=== PATIENT | female | born 1935 | race Caucasian/White ===

== ENCOUNTER 2017-01-26 09:24 | Day surgery (SDC) | payer MEDICARE, OTHER ==
[2017-01-26] VITALS (11 sets, daily range): BP systolic 127–191; BP diastolic 52–82; PULSE 53–68; RESP 12–20; O2SAT 97–100
[~2017-01-26] VITALS: Ht 160 cm; Wt 70.1 kg
[~2017-01-26 09:24] MED LIST: ACET325C PO; AGM875T PO; BUPR-97 PO; CARV12.52 PO; CARV25TA2 PO; CHOL100045 PO; DICL100G8 TOPICAL; FEBU80TA PO; KETACONAZOLE SHAMPOO TP; KETACONAZOLE TP; LEVO25TA5 PO; LISD70CA2 PO; LISI-567 PO; Lactated Ringer's 1,000 ML IV ONE; MULT-1073 PO; WARF4TAB6 PO
[2017-01-26] MEDS ORDERED: fentaNYL-PF 50 mCg/mL 2 mL Inj ONE (09:25)
[2017-01-26] MEDS ORDERED: EPHEDrine/NS 5 mg/mL 5 mL Syringe ONE (09:25)
[2017-01-26] MEDS ORDERED: Propofol 10,000 mCg/mL 20 mL Inj ONE (09:25)
[2017-01-26] MEDS ORDERED: Ondansetron 2 mg/mL 2 mL Inj ONE (09:25)
[2017-01-26] MEDS ORDERED: Glycopyrrolate 0.2 MG/ML 1mL Inj ONE (09:25)
[2017-01-26] MEDS ORDERED: Phenylephrine/NS 100 mCg/mL 10 mL Syringe IVPUSH ONE (09:25)
[2017-01-26] MEDS ORDERED: Neostigmine 1 mg/mL 10 mL Inj ONE (09:25)
[2017-01-26] MEDS ORDERED: Rocuronium 10 mg/mL 5 mL Inj ONE (09:25)
[2017-01-26] MEDS ORDERED: CeFAZolin Inj 2 gm / 50mL D5W IV ONE (10:43)
[2017-01-26] MEDS ORDERED: Lactated Ringer's 500 ML IV PRN (11:28)
[2017-01-26] MEDS ORDERED: Lactated Ringer's 1,000 ML IV SCH (11:28)
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
[2017-01-26] MEDS ORDERED: Phenylephrine 10,000 mCg/mL Inj IVPUSH PRN (11:30)
[2017-01-26] MEDS ORDERED: Ondansetron 2 mg/mL 2 mL Inj IVPUSH PRN (11:30)
[2017-01-26] MEDS ORDERED: Atropine 0.4 mg/mL Inj IVPUSH PRN (11:30)
[2017-01-26] MEDS ORDERED: EPHEDrine Sulfate 50 mg/mL Inj IVPUSH PRN (11:30)
[2017-01-26] MEDS ORDERED: fentaNYL-PF 50 mCg/mL 2 mL Inj IVPUSH PRN (11:30)
[2017-01-26] MEDS ORDERED: Labetalol 5 mg/mL 4 mL Inj IV PRN (11:30)
[2017-01-26] MEDS ORDERED: MetoCLOpramide 5 mg/mL 2 mL Inj IVPUSH PRN (11:30)
[2017-01-26] MEDS ORDERED: HYDROcodone-APAP 5-325 mg Tablet PO PRN (12:35)
--- NOTE | 2017-01-26 12:51 | PCM.ANEP1 ---
Post Anesthesia PACU Phase 1 Assessment Vital Signs Vital Signs Date Time Temp Pulse Resp B/P Pulse Ox O2 Delivery O2 Flow Rate FiO2 01/26/17 12:41 36.5 58 16 164/60 99 Room Air 01/26/17 12:28 56 18 142/52 97 Room Air 01/26/17 12:25 56 18 127/56 98 Room Air 01/26/17 12:05 36.4 58 17 144/53 98 Room Air 01/26/17 12:00 58 16 158/61 97 Room Air 01/26/17 11:55 65 16 169/61 100 Simple Mask 8 01/26/17 11:51 36.5 68 12 182/73 100 Simple Mask 8 01/26/17 10:14 36.5 68 18 191/82 100 Room Air Anesthetic Administered: GA Level of Alertness: Awake, talking BETANCOURT's with Equal Strength: Yes Pain: No Nausea or Vomiting: No CV Function & Hydration Stable: Yes Airway Device: Endotrachial Tube Oxygen Delivery: Simple Mask Lungs: Clear to Auscultation, Normal Air Movement PACU Phase 2 Assessment Complications: No Follow up Care: N/A Patient Instructions Provided: N/A Jules Churchill MD Jan 26, 2017 12:51
--- NOTE | 2017-01-26 13:33 | DRSVH ---
PROCEDURE: X-RAY RETROGRADE UROGRAPHY INDICATIONS: RIGHT STENT PLACEMNET TECHNIQUE: 1 intra-operative images acquired by the Urology service. COMPARISON: Outside Film, CT, CT ABD PELVIS W CON, 09/30/2016, 15:46. FINDINGS: Exam limited to one submitted image. Within these limits, the right renal collecting syst em is opacified which is grossly normal. No intraluminal filling defects seen. Ureteral stent in pl [address]. IMPRESSION: Grossly normal appearance of the opacified right renal collecting system and ureteral shannon nt was placed. Dictated by: Greyson RAINEY Interpreted: Katherine Calixto MD on 01/26/2017 at 13:31 Transcribed by: TARA on 01/26/2017 at 13:32 Approved by: Katherine Calixto M.D. on 01/26/2017 at 15:54
--- NOTE | 2017-01-26 23:45 | OP ---
[address] [address] OPERATIVE REPORT PATIENT: RAZA FIGUEROA : 1935 MR#: [id number] ADMIT: 01/26/2017 JOB ID: [id number] DATE OF SURGERY: 01/26/2017 PREOPERATIVE DIAGNOSIS(ES): Right kidney stone. POSTOPERATIVE DIAGNOSIS(ES): Right kidney stone. PROCEDURE PERFORMED: 1. Cystoscopy with right retrograde pyelogram. 2. Right ureteroscopy. 3. Right ureteral stent placement. SURGEON: Yumiko Hardy MD DATABASE ADMIN: None. FINDINGS: Narrow ureteropelvic junction. ANESTHESIA: General. ESTIMATED BLOOD LOSS: Less than 10 mL. DRAINS: A 6 x 22 right double-J ureteral stent. COMPLICATIONS: None. SPECIMENS: None. CONDITION: Stable. INDICATION: The patient is an 81-year-old woman with a history of a dominant right kidney. She has history of right ureteroscopy in the past. She was found to have a recurrent right kidney stone. She wished to undergo ureteroscopy. DESCRIPTION OF PROCEDURE: After informed consent was obtained, the patient was taken to the operating room. A time-out was performed, identifying correct patient, surgical site, procedure. General anesthesia was induced. She was given intravenous antibiotics just prior to the start of the procedure. She was placed in the lithotomy position. All pressure points were identified and appropriately padded. Her genitals were then prepped and draped in the usual sterile fashion. A 22-Georgian rigid cystoscope was applied to the patient's bladder. The bladder was drained. The right ureteral orifice was seen in orthotopic position. It was cannulated with 5-Georgian open-ended Pollack catheter. Retrograde pyelogram was performed. It appeared normal. Two Sensor tip wires were then advanced into the renal pelvis seen under fluoroscopy. A 12/14 access sheath, 28 cm long was then guided over one of the wires into the proximal right ureter. Flexible ureteroscopy then commenced. Upon coming up to the right ureteropelvic junction, there was a narrowing there. Several gentle attempts were made to maneuver past this narrowing but it was not possible to do so. It was decided to remove the ureteroscope. It was brought down to the level of the access sheath and both were brought down the same under direct vision. The ureter appeared normal. The remaining Sensor tip wire was then backloaded into the cystoscope and a 6 x 22 double-J ureteral stent was loaded over it and advanced into the renal pelvis as seen under fluoroscopy. The wire was then removed, leaving a nice coil in the patient's bladder as seen under direct vision. The bladder was drained. The patient was reversed from general anesthesia and taken to the PACU in good condition. NEL
== END 2017-01-26 23:59 | disposition home or self-care (01) ==
LOC: SAS 09:24
PROVIDERS: ATTEND Urology
DX: N20.0 Calculus of kidney (principal); I10 Essential (primary) hypertension; M81.0 Age-related osteoporosis without current pathological fracture; M10.9 Gout, unspecified; I26.99 Other pulmonary embolism without acute cor pulmonale; F41.8 Other specified anxiety disorders; E03.9 Hypothyroidism, unspecified; I82.509 Chronic embolism and thrombosis of unspecified deep veins of unspecified lower extremity; Z79.01 Long term (current) use of anticoagulants
CPT/HCPCS: 36415; 52332; 74420; 85610; C2617; J0690; J2370; J2405; J2710; J3010; J7120; Q9967

== ENCOUNTER 2017-02-11 13:02 | Day surgery (SDC) | payer MEDICARE, OTHER ==
[~2017-02-11] VITALS: Ht 160 cm; Wt 70.0 kg
[2017-02-11] VITALS (8 sets, daily range): BP systolic 127–159; BP diastolic 54–98; PULSE 60–75; RESP 15–18; O2SAT 94–99
[~2017-02-11 13:02] MED LIST changes: -CARV12.52 PO; +CeFAZolin 2 Gm/50 mL D5W IV Premix IV ONE; +HYDR-4003 PO; -KETACONAZOLE TP; -Lactated Ringer's 1,000 ML IV ONE; +[UNRECOGNIZED DRUG - CODE] PO
[2017-02-11] MEDS ORDERED: Ondansetron 2 mg/mL 2 mL Inj ONE (13:03)
[2017-02-11] MEDS ORDERED: Propofol 10,000 mCg/mL 20 mL Inj ONE (13:03)
[2017-02-11] MEDS ORDERED: Lidocaine PF 1% 30 mL Inj ONE (13:03)
[2017-02-11] MEDS ORDERED: Glycopyrrolate 0.2 MG/ML 1mL Inj ONE (13:03)
[2017-02-11] MEDS ORDERED: Neostigmine 1 mg/mL 10 mL Inj ONE (13:03)
[2017-02-11] MEDS ORDERED: fentaNYL-PF 50 mCg/mL 2 mL Inj ONE (13:03)
[2017-02-11] MEDS: Lactated Ringer's 1,000 ML IV SCH ×2 (15:14→16:12)
[2017-02-11 15:30] LABS: INR 1.05 ratio
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
[2017-02-11] MEDS ORDERED: Lactated Ringer's 1,000 ML IV SCH (15:59)
[2017-02-11] MEDS ORDERED: Lactated Ringer's 500 ML IV PRN (15:59)
[2017-02-11] MEDS ORDERED: Phenylephrine 10,000 mCg/mL Inj IVPUSH PRN (16:00)
[2017-02-11] MEDS ORDERED: HYDROmorphone 1 mg/mL Inj IVPUSH PRN (16:00)
[2017-02-11] MEDS ORDERED: hydrALAZINE 20 mg/mL Inj IVPUSH PRN (16:00)
[2017-02-11] MEDS ORDERED: Atropine 0.4 mg/mL Inj IVPUSH PRN (16:00)
[2017-02-11] MEDS ORDERED: fentaNYL-PF 50 mCg/mL 2 mL Inj IVPUSH PRN (16:00)
[2017-02-11] MEDS ORDERED: Labetalol 5 mg/mL 4 mL Inj IV PRN (16:00)
[2017-02-11] MEDS ORDERED: Dexamethasone 4 mg/mL Inj IVPUSH PRN (16:00)
[2017-02-11] MEDS ORDERED: Ondansetron 2 mg/mL 2 mL Inj IVPUSH PRN (16:00)
[2017-02-11] MEDS ORDERED: EPHEDrine Sulfate 50 mg/mL Inj IVPUSH PRN (16:00)
[2017-02-11] MEDS ORDERED: MetoCLOpramide 5 mg/mL 2 mL Inj IVPUSH PRN (16:00)
[2017-02-11] MEDS ORDERED: CeFAZolin 2 Gm/50 mL D5W Duplex Bag IV ONE (16:10)
[2017-02-11] MEDS ORDERED: HYDROcodone-APAP 5-325 mg Tablet PO PRN (17:05)
--- NOTE | 2017-02-11 17:09 | PCM.ANEP1 ---
Post Anesthesia PACU Phase 1 Assessment Date of Service: Feb 11, 2017 Vital Signs PACU 127/60, 82, 20, 96% RA, T 36.1 Vital Signs Date Time Temp Pulse Resp B/P Pulse Ox O2 Delivery O2 Flow Rate FiO2 02/11/17 14:13 36.2 75 18 159/62 97 Room Air Anesthetic Administered: GA Level of Alertness: Awake, talking BETANCOURT's with Equal Strength: Yes Pain: No Nausea or Vomiting: No CV Function & Hydration Stable: Yes Airway Device: Oxygen Delivery: Room Air Lungs: Normal Air Movement, Other (Chronic cough) PACU Phase 2 Assessment Complications: No Follow up Care: N/A Patient Instructions Provided: N/A Alessio Diaz MD Feb 11, 2017 17:08
--- NOTE | 2017-02-11 18:09 | OP ---
[address] [address] OPERATIVE REPORT PATIENT: RAZA FIGUEROA : 1935 MR#: [id number] ADMIT: 02/11/2017 JOB ID: [id number] DATE OF SURGERY: 02/11/2017 SURGEON: Yumiko Hardy MD. [employer] OWNER: None. PREOPERATIVE DIAGNOSIS(ES): Right kidney stone. POSTOPERATIVE DIAGNOSIS(ES): Right kidney stone. PROCEDURE PERFORMED: 1. Cystoscopy and right ureteral stent removal. 2. Right retrograde pyelogram. 3. Right ureteroscopy with laser lithotripsy and stone basketing. 4. Right stent placement. FINDINGS: Lower pole kidney stones which were quite small, the conglomerate being about 4-5 mm. ANESTHESIA: General. ESTIMATED BLOOD LOSS: Less than 2 mL. DRAINS: 6 x 22 right double-J ureteral stent. SPECIMENS: Right kidney stone. COMPLICATIONS: None. CONDITION: Stable. INDICATION FOR PROCEDURE: The patient is an 81-year-old woman who underwent a right stent placement and ureteroscopy on January 26, 2017. Ureteroscopy was incomplete as the kidney could not be accessed. She now presents for the aforementioned procedure. DESCRIPTION OF PROCEDURE: After informed consent was obtained, the patient was taken to the operating room. A time-out was performed identifying correct patient, surgical site, and procedure. General anesthesia was smoothly induced. She was given intravenous antibiotics just prior to the start of the procedure. She was placed in the lithotomy position and all pressure points were identified and appropriately padded. Her genitals were then prepped and draped in usual sterile fashion. A 22-Belarusian rigid cystoscope was applied to the patient's urethra and advanced into the bladder. The bladder was drained. The right ureteral orifice was seen with the stent emanating from it. The stent was then grasped with graspers and manipulated down to the urethral meatus. The stent was cannulated with a Sensor tip wire. It was advanced to the renal pelvis as seen under fluoroscopy. The stent was removed over the wire and ensured as removed in its entirety. Another sensor tip wire was then placed into the renal pelvis as seen under fluoroscopy. A 12/14 access sheath, 28 cm long was navigated over one of the wires to the proximal ureter. Flexible ureteroscopy then commenced. Retrograde pyelogram was performed. Every calyx was inspected. The 2nd to most inferior calyx was seen with stones. No other calices were found with stones and this was consistent with the CT findings from September. A 273 micron laser fiber wire was used to fragment the larger stones, and the stones were fairly soft. A zero tip nitinol basket was used to attempt to basket these fragments though the one larger fragment 2 mm was the only one that could be removed, the others were simply too small. This was passed off the table to Pathology for stone analysis. The ureteroscope was then brought down to the level of the access sheath and both were brought down in tandem. The ureter was normal. Remaining Sensor tip wire was then backloaded into the cystoscope and a 6 x 22 double-J ureteral stent was loaded over it and guided into the right renal pelvis as seen under fluoroscopy. Wire was removed leaving a nice coil in the patient's bladder seen under direct vision. The bladder was drained. The patient was then reversed from general anesthesia and taken to PACU in good and stable condition. NEL
--- NOTE | 2017-02-12 17:08 | DRSVH ---
PROCEDURE: X-RAY RETROGRADE UROGRAPHY INDICATIONS: RIGHT CYSTO AND STENT PLACEMENT TECHNIQUE: 3 intra-operative images acquired by the Urology service. COMPARISON: [facility], CR, XR RETROGRADE UROGRAPHY, 01/26/2017, 11:23. FINDINGS: Exam limited to 3 submitted image. Within these limits, the right renal collecting system is opacified which is grossly normal. No definite intraluminal filling defects seen. Ureteral sten t in place. IMPRESSION: Grossly normal appearance of the partially opacified right renal collecting system and ur eteral stent was placed. Dictated by: Greyson RAINEY Interpreted: Cynthia Kumar MD on 02/12/2017 at 9:09 Approved by: Cynthia Kumar M.D. on 02/12/2017 at 17:05
== END 2017-02-11 23:59 | disposition home or self-care (01) ==
LOC: SAS 13:02
PROVIDERS: ATTEND Urology
DX: N20.0 Calculus of kidney (principal); I10 Essential (primary) hypertension; F41.8 Other specified anxiety disorders; E03.9 Hypothyroidism, unspecified; M81.0 Age-related osteoporosis without current pathological fracture; M10.9 Gout, unspecified; I26.99 Other pulmonary embolism without acute cor pulmonale; Z79.01 Long term (current) use of anticoagulants
CPT/HCPCS: 36415; 52356; 74420; 82360; 85610; C2617; J0690; J2405; J2710; J3010; J7120; Q9967

== ENCOUNTER 2017-02-20 10:09 | Emergency (ER) | payer MEDICARE, OTHER ==
[~2017-02-20] VITALS: Ht 160 cm; Wt 69.5 kg
[~2017-02-20 10:09] MED LIST changes: -CeFAZolin 2 Gm/50 mL D5W IV Premix IV ONE; -[UNRECOGNIZED DRUG - CODE] PO
[2017-02-20 10:10] VITALS: BP 138/79; PULSE 74; RESP 16; O2SAT 97
--- NOTE | 2017-02-20 10:51 | ED.REPORT ---
HPI-Extremity Problem Lower Date of Service Feb 20, 2017 ED Provider: Lester Desai MD Pt is an 81 year old female with a history of DVT (1x bilaterally), HTN, and hyperlipidemia who presents to the ED complaining of worsening left leg pain onset 3 days ago. She c/o difficulty walking secondary to the pain. She denies chest pain and SOB. Pt was recently diagnosed with kidney stones and had a stent placed, which was removed today. She reports that she has been off Warfarin for the past 10 days. Nursing Notes Stated Complaint: LEG PAIN Chief Complaint: Extremity Trauma Nursing Notes Reviewed: Yes ([facility] not reconciled (off warfarin x10 days for surgery) Allergies: Coded Allergies: Sulfa (Sulfonamide Antibiotics) (Verified Allergy, Severe, RASH, 02/11/17) Scheduled ([Ketaconazole Shampoo]) 1 APPLIC TP 2X/WEEK 2% Amoxicillin/Clav K 875-125 mg (Amoxicillin/Clav K 875-125 mg) 875 Mg Tab 1 TABLET PO BID Bupropion ER (Wellbutrin XL) 150 Mg Tab.er.24h 450 MG PO DAILY Carvedilol (Carvedilol) 25 Mg Tablet 25 MG PO BID Cholecalciferol (Vitamin D3) (Vitamin D) 1,000 Unit Capsule 2,000 UNIT PO DAILY Diclofenac Gel (Voltaren Gel) 100 Gm Tube 1 APPLIC TOPICAL QID 1% Enoxaparin (Lovenox) 80 Mg/0.8 Ml Syringe 70 MG SUBQ Q12 Febuxostat (Uloric) 80 Mg Tablet 80 MG PO HS Levothyroxine (Levothyroxine) 25 Mcg Tablet 25 MCG PO DAILY Lisdexamfetamine Dimesylate (Vyvanse) 70 Mg Capsule 70 MG PO DAILY Lisinopril (Lisinopril) 20 Mg Tablet 20 MG PO BID Multivits-Min/FA/Lycopene/Lut (Centrum Silver Tablet) 1 Each Tablet 1 EACH PO DAILY Warfarin Sodium (Warfarin Sodium) 4 Mg Tablet 4 MG PO DAILY TAKES 2MG M F ; 4MG REST OF WEEK DAILY Scheduled PRN Acetaminophen (Acetaminophen) 325 Mg Capsule 650 MG PO BID PRN PRN PRN Hydrocodone-Acetaminophen 5-325 mg (Hydrocodone-Acetaminophen 5-325 mg) 1 Each Tablet 1-2 TABLET PO Q6H PRN PRN For Pain General Time Seen by MD: 10:22 Chief Complaint Other (Left leg pain) Hx Obtained From: Patient Arrived By: Walk-in Onset Occurred: 3 days ago Symptom Duration: Since onset Location: : Leg left Quality: Painful Severity: Current: Moderate Severity: Maximum: Moderate Recent Healthcare: Recent doctor visit Similar Sx Previous: Yes Past Medical History Past Medical History Notes: Hypertension Hyperlipidemia History of kidney stones History of DVT x1 (one in each leg, on chronic anticoagulation normally) Past Medical History DVT x1 bilaterally Kidney stones Reports: Hyperlipidemia, Hypertension, Denies: Congestive heart failure, Diabetes mellitus Past Surgical History s/p stent placement (stent removed today 02/20/17) Reports: Cataract surgery, Tonsillectomy Reports: Back/neck surgery Smoking History Former Smoker Social History Alcohol Use: "Social" Drug Use: Denies drug use Other Social History: Good social support Ambulatory Status Independent Review of Systems Musculoskeletal: Reports: Extremity pain Complete sys rev & neg: except as marked. Respiratory: Reports: Non-productive cough, Denies: Shortness of breath Cardiovascular: Denies: Chest pain Physical Exam Initial Vital Signs Vital Signs (First) Date Time Temp Pulse Resp B/P Pulse Ox O2 Delivery O2 Flow Rate FiO2 02/20/17 10:10 36.4 74 16 138/79 97 Room Air Initial VS: Reviewed, Vital signs normal Head / Eyes: Atraumatic, Normocephalic Neck: Supple, Full range of motion Respiratory: Breath sounds normal, Clear to auscultation, No respiratory distress Cardiovascular: Regular rate & rhythm, Heart sounds normal, Intact distal pulses Upper Extremities: Vascular intact, Neuro intact Skin: Warm, Dry, No cyanosis Neurologic: Alert, Oriented, Nonfocal Psychiatric: Mood/affect normal, Behavior normal Lower Extremity / Pelvis / MS: Neurologic intact, Vascular intact Trace edema in the left leg. Soreness in the left calf. No erythema. Palpable pulses. Ankle / Foot: Neurologic intact, Vascular intact Warm feet General/Constitutional: Awake, Alert, No acute distress, Cooperative Fatigue. Interpretation & Diagnostics US VEINOUS LEG DUPLEX UNILATERAL, LEFT IMPRESSION: Occlusive and partially occlusive DVT is present within the superficial femoral vein and popliteal vein but the common femoral vein appears patent. Dictated by: Girma Villar M.D. on 02/20/2017 at 12:58 Lab Results Interpretation Result Diagram: 02/20/17 1304 02/20/17 1304 Test 02/20/17 13:04 White Blood Count 10.4th/mm3 (3.8-10.1) Red Blood Count 4.03mil/mm3 (3.90-5.20) Hemoglobin 11.8g/dL (12.0-15.6) Hematocrit 36.9% (35.0-46.0) Mean Corpuscular Volume 91.6fL (81-100) Mean Corpuscular Hemoglobin 29.3pg (27.0-35.0) Mean Corpuscular Hemoglobin Concent 32.0% (32.0-37.0) Red Cell Distribution Width 13.3% (12.3-15.4) Platelet Count 338bil/L (150-400) Neutrophils (%) (Auto) 70.6% (40-74) Lymphocytes (%) (Auto) 12.9% (14-46) Monocytes (%) (Auto) 12.7% (4-12) Eosinophils (%) (Auto) 2.9% (0-5) Basophils (%) (Auto) 0.3% (0-3) Prothrombin Time 33.1sec (8.1-12.5) Prothromb Time International Ratio 3.02ratio Sodium Level 136mEq/L (134-144) Potassium Level 4.7mEq/L (3.5-5.2) Chloride Level 100mEq/L (97-108) Carbon Dioxide Level 20mmol/L (18-29) Blood Urea Nitrogen 32mg/dL (8-27) Creatinine 1.38mg/dL (0.57-1.00) Estimat Glomerular Filtration Rate 53mL/min (>59) Glucose Level 105mg/dL (60-99) Calcium Level 8.8mg/dL (8.5-10.1) Hold Silva Top Tube Received (Received) Lab Results Interpretation: CBC normal CMP mild renal sufficiency INR therapeutic Re-Eval/Medical Decision Med Decision/Clinical Course This is an 81-year-old female who presents complaining of some left lower extremity pain. She is concerned about a recurrent DVT she has had a DVT in each extremity before. She is normally on warfarin therapy, but it had to be helped twice in recent weeks for an extended period of time about a week each secondary development of kidney stones and required urinary stents. She had the stent removed today. Initially when she first got here she gave a history that she actually been off warfarin for the past 7 days, but it turns out she meant to tell us that she started warfarin again 7 days ago. He has had no chest pain, no shortness of breath, no falls. Reports some pain with ambulation. On exam she is clinically well-appearing, she is not visible distress, she is not tachycardic hypoxic or hypotensive. She has some pain in the left calf, but no marked swelling, trace swelling is present. A duplex ultrasound does suggest a DVT. I strongly suspect this is from the recent periods of being subtherapeutic,. And the initial plan was start the patient on Lovenox given the history that she was no longer on the warfarin second procedure, however when it became clear that she actually had warfarin and INR was obtained and is actually therapeutic. The plan at this basis simply to continue her warfarin. [facility] has an INR recheck scheduled for Thursday. I discussed her case with her PCP Dr. Landis. The patient's giving Tylenol for pain, and was seen by physical therapy or [facility] for discharge and the patient's insistent that she thinks she could go home and do well hydrated and the family was a bit concerned , although they were comforted once she demonstrated how while she was doing with physical therapy.. Routine and return precautions reviewed. Source of Hx: Old records Re-Evaluation/Progress #1: Time of Eval: 12:42 Re-Evaluation/Progress Note: Pt rechecked. Family expressed concerns for the pt to ambulate well enough around stairs, and provided clarifications on the pt's medications. All questions addressed. Re-Evaluation/Progress #2: Time of Eval: 14:55 Re-Evaluation/Progress Note: Pt rechecked. Informed pt of plan for discharge and treatment. Pt understands and agrees with plan for discharge and treatment. F/U instructions and RTER warnings given. All questions addressed. Consultation #1: Referral / Consult Name: Padmini Montaño MD Consulted With: Primary care physician Call Returned at: 14:24 Podiatrist Orthopedic: Agrees with eval, Agrees with plan Consultation #2: Call Returned at: 14:40 Podiatrist Orthopedic: Agrees with eval, Agrees with plan Note: Consult with pharmacy. Discussed pt's medications. Differential Diagnosis: Positive: Venous thromboembolism, Negative: Abrasion, Abscess, Achilles tendon rupture, Arterial occlus/ ischemia, Calcaneal fracture, Fracture, Hip dislocation post, Knee disloc ant, Knee ligament injury, Lesser trochant fracture, Metatarsal fracture, Proximal tibia fracture, Puncture wound Counseled Regarding: Diagnosis, Lab results, Need for follow-up, When/why to return to ED Discharge & Departure Impression: Primary Impression: DVT (deep venous thrombosis) DVT location: lower extremity Affected thrombotic vein of extremity: unspecified lower extremity proximal vein Laterality: left Chronicity: acute Qualified Code: I82.4Y2 - Acute embolism and thrombosis of unspecified deep veins of left proximal lower extremity Additional Impressions: Anticoagulated on warfarin Renal insufficiency Disposition: Home Discharge Condition All VS Reviewed: Yes Condition: Stable Additional Instructions: 1. The ultrasound does suggest a repeat DVT in the left leg, causing her pain. 2. You will need to restart your warfarin, as originally planned-but his is take several days developing her system, in the meantime he will need to do a course of Lovenox. Take 70 mg (inject subcutaneously) twice a day till therapeutic on her INR. 3. Take tylenol 1000mg up to three times a day for soreness. 4. Call Dr. Ramirez's office today to schedule a recheck early next week. Keep appointment with the INR ([facility]) clinic on Thursday. 5. Return if new or worsening symptoms: chest pain, shortness of breath, increasing or uncontrolled pain. Referrals: Padmini Montaño MD (PCP) Scribe Attestation Portions of this note were transcribed by Rashmi Dash. I, Dr. Desai personally performed the history, physical exam and medical decision-making; I reviewed and confirmed the accuracy of the information in the transcribed note. Signed by: Wayne Shea, 02/20/17 and 12:50. copies to: Padmini Montaño MD, Matthew F MD Feb 20, 2017 10:51 Rashmi Goodman Feb 20, 2017 10:59
--- NOTE | 2017-02-20 13:02 | DRSVH ---
PROCEDURE: US VEINOUS LEG DUPLEX UNILATERAL, LEFT INDICATIONS: LLE pain, ho DVT's ro DVT TECHNIQUE: Real-time imaging, as well as color and pulse Doppler interrogation, were performed of the lower extr emity deep veins from the inguinal ligament to the popliteal fossa. COMPARISON: None. FINDINGS: There is DVT present, but the common femoral vein appears patent. The superficial femoral vein of the deep venous system shows occlusive clot, with several internal channels within the clot documenting patent flow. A minimal degree of flow is seen in this dilated vessel, however, and the p opliteal vein appears entirely occluded. IMPRESSION: Occlusive and partially occlusive DVT is present within the superficial femoral vein and popliteal vein but the common femoral vein appears patent. Dictated by: Girma Villar M.D. on 02/20/2017 at 12:58 Approved by: Girma Villar M.D. on 02/20/2017 at 13:00
--- NOTE | 2017-02-20 13:29 | NUR ---
Evaluation completed. Please go to "Notes" then click on "Assessments and Notes" (bottom left corner of screen). Then select appropriate discipline tab on top of screen.
[2017-02-20 13:32] LABS: INR 3.02 ratio
[2017-02-20] MEDS ORDERED: LOV80 SUBQ (14:17)
[2017-02-20 14:29] LABS: BASOPHILS % (AUTO) 0.3 % (0-3); EOSINOPHILS % (AUTO) 2.9 % (0-5); MONOCYTES % (AUTO) 12.7 % (4-12); Mean Corpuscular Hemoglobin 29.3 pg (27.0-35.0); Mean Corpuscular Volume 91.6 fL (81-100); NEUTROPHILS % (AUTO) 70.6 % (40-74); Platelet Count 338 bil/L (150-400)
[2017-02-20 15:00] VITALS: BP 151/85; PULSE 68; RESP 16; O2SAT 98
[2017-02-20 15:10] VITALS: BP 151/85; PULSE 68; RESP 16; O2SAT 98
== END 2017-02-20 15:10 | disposition home or self-care (01) ==
LOC: SED 10:09
DX: I82.4Y2 Acute embolism and thrombosis of unspecified deep veins of left proximal lower extremity (principal); N28.9 Disorder of kidney and ureter, unspecified; Z79.01 Long term (current) use of anticoagulants; Z88.2 Allergy status to sulfonamides; I10 Essential (primary) hypertension; E78.5 Hyperlipidemia, unspecified; Z87.891 Personal history of nicotine dependence
CPT/HCPCS: 36415; 52310; 80048; 82565; 85025; 85610; 93970; 97161; 99284; G0463

== ENCOUNTER 2017-02-24 09:15 | Inpatient (IN) | payer MEDICARE, OTHER ==
[~2017-02-24] VITALS: Ht 160 cm; Wt 69.5 kg
[2017-02-24] VITALS (7 sets, daily range): BP systolic 88–158; BP diastolic 47–80; PULSE 67–83; RESP 17–20; O2SAT 97–100
[~2017-02-24 09:15] MED LIST changes: +LOV80 SUBQ
--- NOTE | 2017-02-24 09:27 | ED.REPORT ---
HPI-General Illness Date of Service Feb 24, 2017 ED Provider: Jitendra Castillo MD The patient is an 81 year old female with history of hypertension, hyperlipidemia, DVTs on anticoagulation, who presents to the emergency department complaining of lightheadedness, increased weakness and diaphoresis that she noticed this morning. She also had an episode of loose stools. She denies headaches, focal weakness, chest pain, shortness of breath, nausea, vomiting. The patient recently had a "kidney stent placed" that was removed on Thursday. During the time when the stent was in place she was taken off of her Warfarin. The patient was seen in the ED on Thursday as well for left lower extremity pain. She was diagnosed with a DVT and directed to restart her Warfarin. She still complains of left lower extremity pain. She was also prescribed Lasix for her chronic lower extremity swelling. Nursing Notes Stated Complaint: FAINT/WEAK Chief Complaint: General Complaint Nursing Notes Reviewed: Yes Allergies: Coded Allergies: Sulfa (Sulfonamide Antibiotics) (Verified Allergy, Severe, RASH, 02/24/17) Scheduled Bupropion ER (Wellbutrin XL) 150 Mg Tab.er.24h 450 MG PO HS Carvedilol (Carvedilol) 12.5 Mg Tablet 25 MG PO BID Cholecalciferol (Vitamin D3) (Vitamin D) 1,000 Unit Capsule 2,000 UNIT PO DAILY Febuxostat (Uloric) 80 Mg Tablet 80 MG PO HS Ketoconazole (Ketoconazole) 120 Ml Shampoo 120 ML TP twice a week Levothyroxine (Levothyroxine) 25 Mcg Tablet 25 MCG PO DAILY Lisdexamfetamine Dimesylate (Vyvanse) 70 Mg Capsule 70 MG PO DAILY Lisinopril (Lisinopril) 20 Mg Tablet 20 MG PO BID Multivits-Min/FA/Lycopene/Lut (Centrum Silver Tablet) 1 Each Tablet 1 EACH PO DAILY Warfarin Sodium (Warfarin Sodium) 4 Mg Tablet 2 MG PO thursday and thursday Warfarin Sodium (Warfarin Sodium) 4 Mg Tablet 4 MG PO Sun,e,Thu,Rachele,Sat Scheduled PRN Acetaminophen (Acetaminophen) 325 Mg Capsule 650 MG PO BID PRN PRN PRN General Time Seen by : 09:25 Chief Complaint Weakness Hx Obtained From: Patient, Daughter Arrived By: Walk-in Sudden in Onset?: No Onset Occurred: 3 days ago Symptom Duration: Since onset Severity: Current: No pain currently Severity: Maximum: No pain Recent Healthcare: Recent doctor visit Similar Sx Previous: Yes Past Medical History Past Medical History DVT x1 bilaterally, on anticoagulation Kidney stones Reports: Hyperlipidemia, Hypertension Past Surgical History s/p stent placement (stent removed today 02/20/17) Reports: Cataract surgery, Tonsillectomy Reports: Back/neck surgery Family History Noncontributory Smoking History Former Smoker Social History Alcohol Use: "Social" Drug Use: Denies drug use Other Social History: Good social support, Local resident Ambulatory Status Independent Review of Systems Full Review of Systems Constitutional: Reports: Weakness - generalized Respiratory: Denies: Shortness of breath Cardiovascular: Denies: Chest pain GI: Reports: Diarrhea, Denies: Nausea, Vomiting Musculoskeletal: Reports: Extremity pain, Extremity swelling Skin: Reports Diaphoresis Neurologic: Denies: Focal weakness, Headache Complete sys rev & neg: except as marked. Physical Exam Vital Signs Vital Signs Date Time Temp Pulse Resp B/P Pulse Ox O2 Delivery O2 Flow Rate FiO2 02/24/17 12:09 36.2 73 20 128/53 99 Room Air 02/24/17 09:49 67 116/47 02/24/17 09:18 36.0 72 18 88/57 100 Room Air Initial VS: Reviewed Neck: Supple, Non-tender, Full range of motion Respiratory: Breath sounds normal, Clear to auscultation, No respiratory distress Cardiovascular: Regular rate & rhythm, Heart sounds normal, Intact distal pulses Abdomen / GI: Soft, Non-tender, No guarding, No rebound, No distention Extremities: Vascular intact, Neuro intact Skin: Warm, Dry, No cyanosis Psychiatric: Mood/affect normal, Behavior normal, Normal thought content General/Constitutional: Awake, Alert, Cooperative Head / Eyes: Atraumatic, Normocephalic, PERRL, EOMI ENT: Atraumatic, Airway patent Mouth: Positive: Mucous membranes dry Lower Extremity / Pelvis / MS: Neurologic intact, Vascular intact Compression stocking on left leg. Calf tenderness on the left. Neurovascular intact. Neurologic: Oriented X3, Speech NL, No motor deficits, No sensory deficits, Cerebellar NL, Memory NL No lateralizing neurologic symptoms. No facial droop. Interpretation & Diagnostics Lab Results Interpretation Result Diagram: 02/24/17 1025 02/24/17 1025 Test 02/24/17 10:25 White Blood Count 16.4th/mm3 (3.8-10.1) Red Blood Count 4.26mil/mm3 (3.90-5.20) Hemoglobin 12.5g/dL (12.0-15.6) Hematocrit 38.5% (35.0-46.0) Mean Corpuscular Volume 90.4fL (81-100) Mean Corpuscular Hemoglobin 29.3pg (27.0-35.0) Mean Corpuscular Hemoglobin Concent 32.5% (32.0-37.0) Red Cell Distribution Width 13.5% (12.3-15.4) Platelet Count 389bil/L (150-400) Neutrophils (%) (Auto) 80.2% (40-74) Lymphocytes (%) (Auto) 8.3% (14-46) Monocytes (%) (Auto) 9.0% (4-12) Eosinophils (%) (Auto) 1.8% (0-5) Basophils (%) (Auto) 0.2% (0-3) Prothrombin Time 35.0sec (8.1-12.5) Prothromb Time International Ratio 3.19ratio Sodium Level 137mEq/L (134-144) Potassium Level 4.3mEq/L (3.5-5.2) Chloride Level 101mEq/L (97-108) Carbon Dioxide Level 19mmol/L (18-29) Blood Urea Nitrogen 38mg/dL (8-27) Creatinine 1.60mg/dL (0.57-1.00) Estimat Glomerular Filtration Rate 44mL/min (>59) Glucose Level 117mg/dL (60-99) Lactic Acid Level 1.7mmol/L (0.4-2.0) Calcium Level 9.0mg/dL (8.5-10.1) Total Bilirubin 0.2mg/dL (0.0-1.2) Aspartate Amino Transf (AST/SGOT) 17U/L (0-50) Alanine Aminotransferase (ALT/SGPT) 21U/L (0-32) Alkaline Phosphatase 86U/L (25-165) Troponin T 0.010ug/L (0.0-0.011) Total Protein 7.1g/dL (6.4-8.4) Albumin 3.3g/dL (3.4-5.0) Procalcitonin 0.15ng/mL (0.00-0.08) Hold Silva Top Tube Received (Received) X-Ray Chest Interpretation Chest Xray Interpretation: IMPRESSION: Large retrocardiac hiatal hernia as before. No acute cardiopulmonary disease. Dictated by: Ney Landon M.D. on 02/24/2017 at 11:33 Interpretation / Wet Read by: Interpret - Radiologist Re-Eval/Medical Decision Med Decision/Clinical Course The patient is an 81 year old female with history of hypertension, hyperlipidemia, DVTs on anticoagulation, who presents to the emergency department complaining of lightheadedness, increased weakness and diaphoresis that she noticed this morning. She also had an episode of loose stools. She denies headaches, focal weakness, chest pain, shortness of breath, nausea, vomiting. The patient recently had a "kidney stent placed" that was removed on Thursday. During the time when the stent was in place she was taken off of her Warfarin. The patient was seen in the ED on Thursday as well for left lower extremity pain. She was diagnosed with a DVT and directed to restart her Warfarin. She still complains of left lower extremity pain. She was also prescribed Lasix for her chronic lower extremity swelling. Emergency department the patient feels generally weak though she has no lateralizing neurologic findings, she is afebrile with stable vital signs. LABS: leukocytosis 16.4 increased from prior, stable hematocrit, INR 3.19, acute kidney injury with a BUN of 38 and creatinine of 1.6, no significant electrolyte abnormalities, LFTs WNL, troponin negative. UA unconvincing for UTI. CXR: Large retrocardiac hiatal hernia as before. No acute cardiopulmonary disease. Patient appeared dehydrated and was treated with IV fluids. She reported some improvement in her symptoms. Upon further questioning she reports that she has been using Lasix every day for the last 5 days in an attempt to treat her lower extremity swelling. The swelling of her lower extremities is likely related to her recently diagnosed DVT, this would explain why the diuretic that she is taking is not resolving her lower extremity swelling. I suspect that given her apparent dehydration and use of diuretics that this is caused her acute kidney injury. The cause of her leukocytosis remains unclear as at this time I see no evidence of acute infectious process and she is afebrile. Upon further questioning patient reports that she has "one functioning kidney". Given her evidence of acute kidney injury dehydration we have opted to admit her for serial reassessment of her renal function and hydration. Patient was discussed with hospitalist accepted for further management. Source of Hx: Old records, Family Time of Eval: 12:09 Re-Evaluation/Progress Note: Rechecked the patient. Discussed lab results and options for disposition. The patient would like to be admitted to the hospital. All questions were addressed. Consultation : Referral / Consult Name: Adrián Botello MD Consulted With: Hospitalist Call Returned at: 13:31 Note: Spoke with the resident about the patient's case. Dr. Botello will be the attending physician. Counseled Regarding: Diagnosis, Lab results, Need for admission Discharge & Departure Primary Impression: Generalized weakness Additional Impressions: Acute kidney injury Leukocytosis Leukocytosis type: unspecified Qualified Code: D72.829 - Elevated white blood cell count, unspecified Dehydration Disposition: ADMITTED TO HOSPITAL Discharge Condition All VS Reviewed: Yes Condition: Stable Additional Instructions: Thank you for entrusting us with your care today. You should stop taking the furosemide immediately. Continue taking your other medications as prescribed. Call your regular doctor today to schedule a close followup appointment. Return to the emergency department for any new or concerning symptoms. Referrals: Padmini Montaño MD (PCP) Wayne Attestation Portions of this note were transcribed by Natalee Desai. I, Dr. Castillo personally performed the history, physical exam and medical decision-making; I reviewed and confirmed the accuracy of the information in the transcribed note. Signed by: Wayne Jasmine, 02/24/2017 at 1345. copies to: Padmini Montaño MD, Beck O MD Feb 24, 2017 09:27 Natalee Desai Feb 24, 2017 09:40
[2017-02-24 10:31] LABS: BASOPHILS % (AUTO) 0.2 % (0-3); EOSINOPHILS % (AUTO) 1.8 % (0-5); Mean Corpuscular Hemoglobin 29.3 pg (27.0-35.0); Mean Corpuscular Volume 90.4 fL (81-100); NEUTROPHILS % (AUTO) 80.2 % (40-74); Platelet Count 389 bil/L (150-400)
[2017-02-24] MEDS ORDERED: 0.9% Sodium Chloride 1,000 ML IV ONE ×2 (10:45→12:05)
[2017-02-24 10:55] LABS: INR 3.19 ratio
[2017-02-24 10:57] LABS: TROPONIN T 0.01 ug/L (0.0-0.011)
--- NOTE | 2017-02-24 12:35 | DRSVH ---
PROCEDURE: X-RAY CHEST, TWO VIEWS ([id number]) INDICATIONS: 81 year-old female with shortness of breath. TECHNIQUE: 2 views of the chest were acquired. COMPARISON: [facility], CR, XR CHEST 2VW, 05/08/2016, 10:25. [facility], CR , CHEST 1VW (PORTABLE), 01/24/2015, 17:54. [facility], CR, CHEST 2VW, 11/29/2014, 15:34. FINDINGS: Surgical changes and devices: None. Lungs and pleura: No pleural effusions or pneumothorax. Lungs are clear. Mediastinum: Large retrocardiac hiatal hernia is again noted. Heart size is normal. Bones and chest wall: No suspicious bony abnormalities. Soft tissues appear unremarkable. IMPRESSION: Large retrocardiac hiatal hernia as before. No acute cardiopulmonary disease. Dictated by: Ney Landon M.D. on 02/24/2017 at 11:33 Approved by: Ney Landon M.D. on 02/24/2017 at 11:33
[2017-02-24] MEDS ORDERED: Ondansetron 2 mg/mL 2 mL Inj IVPUSH PRN ×2 (13:30→14:50)
[2017-02-24] MEDS ORDERED: Alum-Mag Hydrox-Simeth 30 mL Suspension PO PRN ×2 (13:30→14:50)
--- NOTE | 2017-02-24 14:46 | PCM.HPMED ---
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 She denies any fevers, nausea, vomiting, back pain, dysuria or hematuria. She denies any diarrhea or abdominal pain. Patient was also seen in the emergency department Thursday due to left lower extremity pain DVT. She subsequently took some extra doses of Lasix to reduce her leg swelling. The patient underwent recent stenting of right ureter on 02/11/17 which was retrieved on 02/20/17nd was told to hold her warfarin. She was given prophylactic cipro during the procedure. 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 she had 4 episodes of watery diarrhea this morning. She states she was coming to her PCP office for INR check when she suddenly felt weak and lightheaded and about to faint. Family members helped her to couch .did not faint Per records review the patient is DNR/DNI with her daughter is the DPOA. In the ED her vitals were stable. She was given one liter of normal saline. Review of Systems: A comprehensive review of systems was conducted with the patient and found to be negative except as above in the History of Present Illness. Allergies Coded Allergies: Sulfa (Sulfonamide Antibiotics) (Verified Allergy, Severe, RASH, 02/24/17) Home Medications Valerie Kim [id number] 1935 02/20/2017 09:15 AM Page: 08/21 Start Date Medication Directions Stop Date 05/20/2016 acetaminophen ER 650 mg tablet,extended release take 1 tablet by oral route every 12 hours as needed swallowing whole with water. Do not break, crush, dissolve and/or chew. 03/29/2013 Centrum Silver tablet take 1 tablet by oral route every day 01/20/2017 Coreg 12.5 mg tablet take 2 tablets by oral route every morning and 2 tablets in the evening with food for blood pressure 01/29/2017 ketoconazole 2 % shampoo LATHER FOR 5MINS THEN RINSE ONCE DAILY FOR 1 WEEK , THEN TWICE A WEEK THEREAFTER UNTIL RESOLUTION 11/18/2016 levothyroxine 25 mcg tablet take 1 tablet by oral route every day 11/18/2016 lisinopril 20 mg tablet take 1 tablet by oral route 2 times every day 08/25/2016 Uloric 80 mg tablet TAKE ONE TABLET BY MOUTH DAILY Vitamin D3 2,000 unit capsule take 1 capsule by mouth once daily 09/06/2015 Voltaren 1 % topical gel apply (2G) by topical route 4 times every day to the affected area(s) 11/18/2016 Vyvanse 70 mg capsule take 1 capsule (70MG) by oral route every day in the morning 11/18/2016 warfarin 4 mg tablet take 0.5 tablet (2mg) Mon. and Fri. 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 Social History Hx Alcohol Use: Yes (occasionally) Hx Substance Use: No Hx Tobacco Use: No Smoking Status: Unknown if Ever Smoker Exam Vital Signs Vital Sign - Last Date Time Temp Pulse Resp B/P Pulse Ox O2 Delivery O2 Flow Rate FiO2 02/24/17 12:09 36.2 73 20 128/53 99 Room Air Exam General: No acute distress, well-developed, well-nourished, appropriately interactive HEENT: Normocephalic, atraumatic. External ears without defect. Pupils equal, round, and reactive to light and accommodation. Anicteric sclerae, moist conjunctivae, and no lid lag. Oropharynx free of erythema and cobble stoning with moist mucosa. Neck: Supple with full range of motion. No jugular venous distension. No bruits. No lymphadenopathy or thyromegaly. Cardiovascular: Regular rate and rhythm with no murmurs, rubs, or gallops appreciated Pulmonary: Clear to auscultation bilaterally with no crackles, wheezes, or rhonchi. Normal respiratory effort with no use of accessory muscles. Abdomen: Bowel tones present. Soft, nontender, nondistended. No hepatosplenomegaly or masses appreciated. Extremities: No clubbing, cyanosis, edema, or lymphadenopathy appreciated. Skin: Normal temperature, turgor, and texture; no rash, ulcers, or subcutaneous nodules appreciated. : No suprapubic tenderness, no CVA tenderness. Neurological: Cranial nerves grossly intact. Normal muscle strength, tone, and bulk. Reflexes, coordination, and sensory function within normal limits. No known gait impairment. Psychiatric: A bit anxious and upset about her recurrent blood clot but overall normal mood and affect. Alert and oriented to person, place, and time. Lab and Diagnostics Result Diagram: 02/24/17 1025 02/24/17 1025 X-Rays, CTs and MRIs X-RAY CHEST, TWO VIEWS IMPRESSION: Large retrocardiac hiatal hernia as before. No acute cardiopulmonary disease. Dictated by: Ney Landon M.D. 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 # Weakness/near syncope , present on admission active -likely due to hypotension due to combination of recent Lasix use and 4 episodes of watery diarrhea today -Initial sBP in 80's - PE possible but unlikely given therapeutic INR. Patient does have a recent history of DVT diagnosed last week -EKG ordered. If there are any changes from prior EKGs consider V/Q scan to evaluate for PE. Patient currently therapeutic with warfarin. -NS 100ml/h # Watery diarrhea -need to rul out C. difficile colitis given recent antibiotic use for kidney stent prophylaxis and leukocytosis -Stool PCR requested # Acute kidney injury on chronic kidney disease, present on admission, active -Baseline Cr around 1.2-1.3 -Differential includes: recurrent UTI, recurrent kidney stone, ureteral obstruction -TIM is likely prerenal azotemia due to dehydration from Lasix overuse or obstruction. -Will obtain UA with culture -Will obtain reproperitoneal U/S -Continue NS @100 cc/hr # Suspected complicated UTI -Urinalysis with 6-10 WBC, small leukocyte esterase -Start doxycycline,chose c.dif neutral doxycycline pending C. difficile test and patient not toxic. Pro-calcitonin elevated at 0.15. Will switch to ceftriaxone if c.dif is negative -Urine culture pending -Patient had sent ureteral stent removal Chronic issues, present on admission # Hypertension -Hold Lisinopril and losartan. Consider choosing one or the other outpatient as there has been no proven benefit from ACEi and ARB therapy in combination. 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 VTE Prophylaxis: Theraputic Anticoag with Warfarin Resuscitation Status: DNR/DNI:Do Not Resuscitate/Intubate copies to: Padmini Montaño MD, Viktoriya DO Feb 24, 2017 13:40 Adrián Botello MD Feb 24, 2017 15:55
[2017-02-24] MEDS ORDERED: Polyethylene Glycol (PEG) 17 Gm Powder PO PRN (14:50)
--- NOTE | 2017-02-24 14:58 | NUR ---
Admit Patient arrived to room 238-2 via stretcher from ED at 1420. Pt ambulated to bed. IV SL; RA. Patient reports pain 3/10 in left leg when bearing weight. Med rec being completed by admit nurse. Addendum: 02/24/17 at 1518 by MEG GOODRICH RN Pt arrived at 1410, not 1420
[2017-02-24] MEDS ORDERED: WARF4TAB6 PO (14:59)
[2017-02-24] MEDS ORDERED: KETO120S3 TP (15:13)
[2017-02-24] MEDS ORDERED: CARV12.52 PO (15:13)
--- NOTE | 2017-02-24 15:17 | PCM.PHAPRO ---
Progress Date of Service: Feb 24, 2017 Weakness Warfarin Management Per Pharmacy: Indication: R leg DVT, history of multiple thromboembolic events Goal INR: 2-3 Home Dose: 2 mg Mon/Fri, 4 mg all other days Labs: Hgb/Hct: 12.5/38.5 Plt: 389 INR: 3.19 Bleeding Risks: Advanced age, possible acute illness Recommendation: Warfarin 2 mg x 1 today (this will be 1/2 of patient's normal home dose as INR is minimally supratherapeutic). Will not hold warfarin as pt has history of multiple thromboembolic events and likely better to shoot for INR closer to 3.0. INR ordered daily x 7 days. Pharmacy to continue to adjust warfarin as needed. Thank You, Radha Merino, Pharm D. Radha Merino Feb 24, 2017 15:17
[2017-02-24 15:37] LABS: APPEARANCE,URINE CLEAR (CLEAR,HAZY); COLOR,URINE YELLOW (YELLOW); OCCULT BLOOD,URINE TRACE (NEGATIVE); UROBILINOGEN,URINE NORMAL (NORMAL)
[2017-02-24] MEDS ORDERED: Doxycycline Inj 100 MG in Dextrose 5% Minibag Plus 100 ML IV SCH (15:55)
[2017-02-24] MEDS: 0.9% Sodium Chloride 1,000 ML IV SCH (16:06)
[2017-02-24] MEDS: buPROPion XL 150 mg ER24 Tablet PO SCH (21:02)
[2017-02-25] MEDS: 0.9% Sodium Chloride 1,000 ML IV SCH (00:45)
--- NOTE | 2017-02-25 01:00 | NUR ---
IV access At start of shift another RN started new IV d/t pain of one put in ER, eventually c/o of this new IV also, flushed ok but became increasingly more painful even with decreased rate, I attempted x1 to put new IV unsuccessfully, then the charge coordinator fro ICU attempted w/out success, eventually @ this time another QUAD STAYER came and was successful! Addendum: 02/25/17 at 0605 by CRYSTAL JONES RN No further c/o IV pain.
[2017-02-25 05:59] VITALS: BP 148/84; PULSE 61; RESP 18; O2SAT 100
[2017-02-25 07:23] LABS: INR 2.73 ratio
[2017-02-25 08:36] VITALS: BP 164/79; RESP 18; O2SAT 97
--- NOTE | 2017-02-25 08:53 | DRSVH ---
PROCEDURE: US RENAL SONOGRAM INDICATIONS: ?kidney stone TECHNIQUE: Real-time scanning was performed of the kidneys and bladder, with image documentation. COMPARISON: None. FINDINGS: Kidneys: Left kidney is not seen, appearing atrophic on prior outside CT of 09/30/2016. Right kidney m easures 11.1 cm long; Right renal cortical thickness is 0.9 cm; Renal cortical echotexture is normal. No hydronephrosis or nephrolithiasis. No suspicious solid mass lesions. Bladder: Pre-void bladder volume is 57 mL. Patient voided immediately prior to the exam. On pre-void images, no ureteral jets are noted with color Doppler interrogation. (Of note, ureteral jets may no t be detectable in up to 25% of cases due to insufficient differences in specific gravity between ure teral and bladder urine). Miscellaneous: No free pelvic fluid. IMPRESSION: 1. Right kidney shows mild cortical thinning, no visible stones or hydronephrosis. 2. Atrophic left kidney is nonvisualized on this exam. 3. Small bladder volume, patient voiding prior to the exam. No visible bladder abnormality. Dictated by: Thad Hernandez M.D. on 02/25/2017 at 8:47 Approved by: Thad Hernandez M.D. on 02/25/2017 at 8:51
[2017-02-25 09:23] LABS: BASOPHILS % (AUTO) 0.4 % (0-3); EOSINOPHILS % (AUTO) 3.5 % (0-5); Mean Corpuscular Hemoglobin 29.2 pg (27.0-35.0); Mean Corpuscular Volume 90.7 fL (81-100); Platelet Count 351 bil/L (150-400)
[2017-02-25] MEDS: LISDEXAMFETAMINE 70 MG PO SCH (09:50)
--- NOTE | 2017-02-25 11:00 | PCM.PHAPRO ---
Progress Weakness/1day near syncope /1 day diarrhea/1 day Date Feb 25-Feb INR 3.19 2.73 INR change -0.46 Warf Dose 2 mg 3 Julio Oconnor Pharm.D Feb 25, 2017 11:00
--- NOTE | 2017-02-25 11:24 | NUR ---
Case management- Berry explained and signed/timed by patient. Copy given to patient/ original placed in chart. Migdalia PAULSON/ DONAL
--- NOTE | 2017-02-25 11:26 | NUR ---
Social Work: Multidisciplinary Rounds Pt discussed in rounds. MD states pt may possibly d/c today. MD states pt needs INR checks 3-4 times per week, requested HH be set up for pt. EMT BASIC will meet with pt today and discuss HH RN after MD orders. ALAN El
[2017-02-25] MEDS: oxyCODONE-Acetamin 5-325 mg Tablet PO PRN ×2 (13:19→22:24)
--- NOTE | 2017-02-25 13:32 | NUR ---
Social Work: Initial Assessment / Readiness for d/c Data: Pt is an 81 y/o female admitted for TIM, leukocytosis, dehydration. Pt's PCP is Dr Montaño, pt's insurance is Medicare with [facility]. EMR reviewed, readmit score is 4, high. TURN LASTER met with pt at daughter at bedside, role explained. Pt states that she lives alone in [facility] but that she plans to stay with her daughter in [place] at discharge. Pt's daughters home has 12 stairs, pt uses a walker, does not drive, has no HH hx, has hx at SNF at [facility], has no LTC or VA benefits. Pt is not a caregiver. ordered TURN LASTER look into options for INR checks 3-4 times a week through both HH options and Anticoagulation clinic in the area where pt will d/c. TURN LASTER spoke with pt and daughter regarding this. They prefer [facility], TURN LASTER called [facility], they do RN HH INR checks, but cannot see pt until 03/03/17, MD states this is too far out. TURN LASTER spoke with [facility] who faxed over a referral form for pt stating they can typically set this up in 1-2 days from referral. MD completed referral form, TURN LASTER faxed it with facesheet, H&P, and medications list. TURN LASTER awaiting D/C orders and summary to also send to them. [facility] requested updated information on pt's previous INR checks, UR specialist calling them to notify that they will have to speak directly with the clinic for these medical records and not go through us at the hospital. TURN LASTER awaiting phone call from [facility]. TURN LASTER will continue to follow. Assessment: Pt who is independent at baseline. Plan: Pt will d/c to daughter's home via POV, likely today per . TURN LASTER awaiting phone from [facility] confirming they can take pt. TURN LASTER will continue to follow. ALAN El Addendum: 02/25/17 at 1350 by FLO WINSLOW SS Amended: Links added. Addendum: 02/25/17 at 1511 by FLO ACKERMAN TURN LASTER spoke with Zaida with [facility] [phone], they have received the referral and can take pt. They will requested INR history from the Medical center. They report they will call pt to set up an appointment for Thursday for INR checks. ALAN El
[2017-02-25 14:10] VITALS: BP 151/75; PULSE 60; RESP 16; O2SAT 94
--- NOTE | 2017-02-25 15:42 | NUR ---
Social Work: Discharge Data: Pt is on day 1 of hospitalization. EMR reviewed. D/C orders are in. MARINE FISHERIES TECHNICIAN completed setting up pt with [facility] for INR checks on Thursday and 3 times a week there forward. Pt's daughter has phone number and will call to set up an appointment. MARINE FISHERIES TECHNICIAN faxed d/c orders and summary to [facility]. MARINE FISHERIES TECHNICIAN spoke with pt who requested information on the residency clinic. MARINE FISHERIES TECHNICIAN gave her their phone number. MARINE FISHERIES TECHNICIAN spoke with MD, no further d/c planning needs at this time. MARINE FISHERIES TECHNICIAN will continue to follow if needs arise. Assessment: Pt who is independent at baseline. Plan: Pt will d/c to daughters home via POV with daughter today. Follow up appointment with [facility] for INR checks starting Thursday, pt's daughter has phone number and will call to set up an appointment. No further d/c planning needs at this time. MARINE FISHERIES TECHNICIAN will continue to follow if needs arise. ALAN El Addendum: 02/25/17 at 1609 by FLO WINSLOW SS MARINE FISHERIES TECHNICIAN notified by RN that states pt will not d/c today due to Cdiff+. MARINE FISHERIES TECHNICIAN will continue to follow. ALAN El
--- NOTE | 2017-02-25 15:43 | NUR ---
+CDiff Received call from [employer] to notify of +CDiff. Paged MD to notify.
--- NOTE | 2017-02-25 15:45 | PCM.DIMED ---
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 Initial systolic blood pressure was in 80s. Symptoms seems to be due to hypotension due to combination of recent Lasix use and 4 episodes of watery diarrhea on . Diarrhea resolved now.You were diagnosed with C. difficile colitis. Please continue metronidazole 500 mg by mouth twice a day for 6 more days. Please be aware of medication interaction between metronidazole and Coumadin. Vancomycin oral is not authorized by your insurance. Please follow-up INR every other day at [facility] as scheduled. Please follow-up with PCP in 1-2 week. Please continue home health for home physical therapy, occupational therapy and bath aid 2-3 times per week. Follow-up Provider: Padmini Montaño MD Follow-up with PCP in: 2 weeks Adrián Botello MD Feb 25, 2017 15:45
--- NOTE | 2017-02-25 15:50 | PCM.PNMED ---
Subjective Date of Service Feb 25, 2017 Subjective Diarrhea improved. Had one episode today. C. difficile positive. Weakness improved. Exam Vital Signs Vital Sign - Last Date Time Temp Pulse Resp B/P Pulse Ox O2 Delivery O2 Flow Rate FiO2 02/25/17 14:10 36.5 60 16 151/75 94 Room Air Intake and Output 02/24/17 02/24/17 02/25/17 Cumulative From/Thru 15:00 23:00 07:00 02/24/17 09:18 - 02/25/17 06:07 Intake Total 120 ml 1659 ml 1779 ml Output Total 125 ml 2300 ml 2425 ml Balance -5 ml -641 ml -646 ml Intake Oral 120 ml 1174 ml 1294 ml IV Total 485 ml 485 ml Output Urine Total 125 ml 2300 ml 2425 ml # Bowel Movements 1 1 Exam General: No acute distress, well-developed, well-nourished, appropriately interactive HEENT: Normocephalic, atraumatic. External ears without defect. Pupils equal, round, and reactive to light and accommodation. Anicteric sclerae, moist conjunctivae, and no lid lag. Oropharynx free of erythema and cobble stoning with moist mucosa. Neck: Supple with full range of motion. No jugular venous distension. No bruits. No lymphadenopathy or thyromegaly. Cardiovascular: Regular rate and rhythm with no murmurs, rubs, or gallops appreciated Pulmonary: Clear to auscultation bilaterally with no crackles, wheezes, or rhonchi. Normal respiratory effort with no use of accessory muscles. Abdomen: Bowel tones present. Soft, nontender, nondistended. No hepatosplenomegaly or masses appreciated. Extremities: No clubbing, cyanosis, edema, or lymphadenopathy appreciated. Skin: Normal temperature, turgor, and texture; no rash, ulcers, or subcutaneous nodules appreciated. : No suprapubic tenderness, no CVA tenderness. Neurological: Cranial nerves grossly intact. Normal muscle strength, tone, and bulk. Reflexes, coordination, and sensory function within normal limits. No known gait impairment. Psychiatric: A bit anxious and upset about her recurrent blood clot but overall normal mood and affect. Alert and oriented to person, place, and time. IVs and Medications Medications Reviewed: Medications were reviewed in detail Lab and Diagnostics Result Diagram: 02/25/1760602/25/17606 X-Rays, CTs and MRIs X-RAY CHEST, TWO VIEWS IMPRESSION: Large retrocardiac hiatal hernia as before. No acute cardiopulmonary disease. Dictated by: Ney Landon M.D. 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 # Weakness/near syncope , present on admission active -likely due to hypotension due to combination of recent Lasix use and 4 episodes of watery diarrhea today -Initial sBP in 80's - PE possible but unlikely given therapeutic INR. Patient does have a recent history of DVT diagnosed last week -EKG ordered. If there are any changes from prior EKGs consider V/Q scan to evaluate for PE. Patient currently therapeutic with warfarin. -NS 100ml/h # c.dif colitis -High risk for C. difficile colitis given recent antibiotic use for kidney stent prophylaxis and leukocytosis -Stool PCR positive for C. difficile -Vancomycin by mouth started 02/25 # Acute kidney injury on chronic kidney disease, present on admission, improved -Baseline Cr around 1.2-1.3. -Differential includes: recurrent UTI, recurrent kidney stone, ureteral obstruction -TIM is likely prerenal azotemia due to dehydration from Lasix overuse or obstruction. - reproperitoneal U/S unremarkable -Continue NS @100 cc/hr # Initially Suspected complicated UTI -Urinalysis with 6-10 WBC, small leukocyte esterase -Initially Started doxycycline,Urine culture no growth. Discontinued doxycycline -Patient had sent ureteral stent removal Chronic issues, present on admission # Hypertension -Hold Lisinopril and losartan. Consider choosing one or the other outpatient as there has been no proven benefit from ACEi and ARB therapy in combination. 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 Changed to inpatient status VTE Prophylaxis: Theraputic Anticoag with Warfarin Resuscitation Status: DNR/DNI:Do Not Resuscitate/Intubate Adrián Botello MD Feb 25, 2017 15:50 Adrián Botello MD Feb 25, 2017 15:50
--- NOTE | 2017-02-25 17:21 | NUR ---
Case Management: COS to IP. IMM explained to patient at 1610, all questions answered. Signed original placed in chart, copy given to patient. Angie Soto RN
[2017-02-25 17:46] VITALS: BP 152/78; PULSE 78; RESP 12; O2SAT 97
--- NOTE | 2017-02-25 18:31 | NUR ---
Mobility and C.Diff Result Today Valerie ambulated twice outside of the room in the hernandez. One time 50 feet, the next was 75 feet. She endorsed that the Percocet administered per ordered aided in her pain and ability to walk with the front wheeled walker. She was scheduled to d/c but unfortunately her C. Diff result was positive so she will stay and received oral Vancomycin.
[2017-02-25] MEDS: Vancomycin 125 mg Oral Capsule PO SCH (20:39)
[2017-02-25] MEDS: buPROPion XL 150 mg ER24 Tablet PO SCH (20:39)
--- NOTE | 2017-02-25 23:34 | NUR ---
Ambulation Pt ambulating out into hallway twice before midnight during this shift, SBA with FWW and gait belt. Steady, slow gait, approx 100feet each time. Pt denied SOB. Pain 2-3/10 with ambulation, percocet requested prior to getting out of bed. Call light within reach, pt able to express needs.
[2017-02-26] VITALS (7 sets, daily range): BP systolic 138–166; BP diastolic 73–79; PULSE 63–77; RESP 15–17; O2SAT 97–98
[2017-02-26] MEDS: Vancomycin 125 mg Oral Capsule PO SCH ×4 (02:48→21:34)
[2017-02-26] MEDS: oxyCODONE-Acetamin 5-325 mg Tablet PO PRN ×3 (05:00→21:34)
[2017-02-26 07:16] LABS: INR 2.24 ratio
[2017-02-26] MEDS: LISDEXAMFETAMINE 70 MG PO SCH (08:30)
[2017-02-26 09:13] LABS: BASOPHILS % (AUTO) 0.5 % (0-3); EOSINOPHILS % (AUTO) 4.7 % (0-5); MONOCYTES % (AUTO) 11.2 % (4-12); Mean Corpuscular Hemoglobin 29.1 pg (27.0-35.0); Mean Corpuscular Volume 91.7 fL (81-100); NEUTROPHILS % (AUTO) 64.7 % (40-74); Platelet Count 377 bil/L (150-400)
[2017-02-26] MEDS: 0.9% Sodium Chloride 1,000 ML IV SCH ×2 (12:15→21:34)
--- NOTE | 2017-02-26 14:47 | PCM.PNMED ---
Subjective Date of Service Feb 26, 2017 Subjective Diarrhea resolved. Patient had a near syncope episode when using bathroom today. Has orthostatic drop in blood pressure. restarted on IV fluids. Exam Vital Signs Vital Sign - Last Date Time Temp Pulse Resp B/P Pulse Ox O2 Delivery O2 Flow Rate FiO2 02/26/17 12:35 37.0 77 17 164/77 97 Room Air Intake and Output 02/25/17 02/25/17 02/26/17 Cumulative From/Thru 15:00 23:00 07:00 02/24/17 09:18 - 02/26/17 05:50 Intake Total 930 ml 400 ml 3109 ml Output Total 1000 ml 1300 ml 4725 ml Balance -70 ml -900 ml -1616 ml Intake Oral 700 ml 400 ml 2394 ml IV Total 230 ml 715 ml Output Urine Total 1000 ml 1300 ml 4725 ml # Voids 1 1 # Bowel Movements 1 Exam General: No acute distress, well-developed, well-nourished, appropriately interactive HEENT: Normocephalic, atraumatic. External ears without defect. Neck: Supple with full range of motion. No jugular venous distension. No bruits. No lymphadenopathy or thyromegaly. Cardiovascular: Regular rate and rhythm with no murmurs, rubs, or gallops appreciated Pulmonary: Clear to auscultation bilaterally with no crackles, wheezes, or rhonchi. Normal respiratory effort with no use of accessory muscles. Abdomen: Bowel tones present. Soft, nontender, nondistended. No hepatosplenomegaly or masses appreciated. Extremities: No clubbing, cyanosis, edema, or lymphadenopathy appreciated. Skin: Normal temperature, turgor, and texture; no rash, ulcers, or subcutaneous nodules appreciated. : No suprapubic tenderness, no CVA tenderness. Neurological: Cranial nerves grossly intact. Normal muscle strength, tone, and bulk. Psychiatric: Alert and oriented to person, place, and time. IVs and Medications Medications Reviewed: Medications were reviewed in detail Lab and Diagnostics Result Diagram: 02/26/1762402/26/17624 X-Rays, CTs and MRIs X-RAY CHEST, TWO VIEWS IMPRESSION: Large retrocardiac hiatal hernia as before. No acute cardiopulmonary disease. Dictated by: Ney Landon M.D. on 02/24/2017 at 11:33 PROCEDURE: US RENAL SONOGRAM INDICATIONS: ?kidney stone IMPRESSION: 1. Right kidney shows mild cortical thinning, no visible stones or hydronephrosis. 2. Atrophic left kidney is nonvisualized on this exam. 3. Small bladder volume, patient voiding prior to the exam. No visible bladder abnormality. Dictated by: Thad Hernandez M.D. 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 # Weakness/near syncope , present on admission active -likely due to hypotension due to combination of recent Lasix use and 4 episodes of watery diarrhea on day of presentation -Initial sBP in 80's - PE possible but unlikely given therapeutic INR. Patient does have a recent history of DVT diagnosed last week -restarted NS 100ml/h today due to orthostatic hypotension # c.dif colitis -High risk for C. difficile colitis given recent antibiotic use for kidney stent prophylaxis and leukocytosis -Stool PCR positive for C. difficile -Vancomycin by mouth started 02/25 -Patient prefers to be discharged on vancomycin' than flagyl due to concern of interaction with warfarin.gave script for abx to SW So that patient compares copay and decide . Benefit and risk discussed # Acute kidney injury on chronic kidney disease, present on admission, improved -Baseline Cr around 1.2-1.3. 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 Discontinued doxycycline -Patient had sent ureteral stent removal Chronic issues, present on admission # Hypertension -Hold Lisinopril and losartan. Consider choosing one or the other outpatient as there has been no proven benefit from ACEi and ARB therapy in combination. # Osteoporosis # Gout -Hold Uloric # Depression with anxiety -Continue Vyvanse, wellbutrin, # Hypothyroid -Continue levothyroxine CODE STATUS: DNR/DNI Disposition: Discharge in 1-2 days. inpatient status VTE Prophylaxis: Theraputic Anticoag with Warfarin Resuscitation Status: DNR/DNI:Do Not Resuscitate/Intubate Adrián Botello MD Feb 26, 2017 14:47 Adrián Botello MD Feb 26, 2017 14:47
--- NOTE | 2017-02-26 15:21 | NUR ---
Faxed prescriptions to [facility] for villalta check per MD order. Updated LIABILITY ANALYST
--- NOTE | 2017-02-26 16:24 | NUR ---
Social Work: Continued d/c planning / Multidisciplinary Rounds Data: pt is on day 2 of hospitalization. EMR reviewed. Pt discussed in rounds. MD states pt likely to need 1-2 more days medically. ABSORBER OPERATOR spoke with pt's daughter who updated [facility] and rescheduled appointment with them for INR checks for Thursday. requested ABSORBER OPERATOR look up cost of medication for pt, UR specialist working on this, awaiting to hear back from pharmacy. ABSORBER OPERATOR will continue to follow. Assessment: Pt who is independent at baseline. Plan: Pt will d/c to pt's daughters home via POV with INR checks [facility] at [facility]. ABSORBER OPERATOR will continue to follow. ALAN El
--- NOTE | 2017-02-26 19:09 | NUR ---
[id number] hypotension/dizziness Pt. up to bathroom, became dizzy when trying to get off the toilet. Was transferred to bed by 2 staff members. BP checked and reading 100/61. Re-checked .5 hr later, and reading 108/63. Pt. had her 25mg coreg with morning medications. These findings reported to Dr. Botello. Pt. was started on IV NS at 100hr. Will continue to monitor.
--- NOTE | 2017-02-26 19:12 | NUR ---
Ambulation/pain Pt. reporting that "I am feeling better after this morning's low blood pressure, I would like to walk again this afternoon. Pt. was given 1 tab of percocet 1 hr prior to ambulating; pt. stated that "that leg just feels tired." Pain to be rated 3-4/10 when up and walking. Pt. states that pain med effective if given prior to walking. Pt. did 6 circles in the room, with end pressure reading 138/76, pt. denied being being dizzy. Report given to Sandy Jones RN to continue care.
--- NOTE | 2017-02-26 19:44 | NUR ---
Activity/mobility/pain Up ambulating circles in room tolerated well a little sob on return to bed, states pain only a "1" while up none iback in bed"
[2017-02-26] MEDS: buPROPion XL 150 mg ER24 Tablet PO SCH (21:38)
[2017-02-27] MEDS: Vancomycin 125 mg Oral Capsule PO SCH ×3 (01:54→14:25)
--- NOTE | 2017-02-27 02:09 | NUR ---
IV site patient c/o of leak @ IV site, it had obviously infiltrated, stopped IV D/t difficulty of start and on PO antibiotic will hold off tonight
[2017-02-27 06:12] VITALS: BP 177/68; PULSE 20; PULSE 77; RESP 20; O2SAT 97
[2017-02-27 07:07] LABS: BASOPHILS % (AUTO) 0.7 % (0-3); EOSINOPHILS % (AUTO) 5.6 % (0-5); MONOCYTES % (AUTO) 11.3 % (4-12); Mean Corpuscular Hemoglobin 29.1 pg (27.0-35.0); Mean Corpuscular Volume 91.4 fL (81-100); NEUTROPHILS % (AUTO) 64.4 % (40-74); Platelet Count 369 bil/L (150-400)
[2017-02-27] MEDS: 0.9% Sodium Chloride 1,000 ML IV SCH (07:10)
[2017-02-27 07:17] LABS: INR 2.46 ratio
[2017-02-27 07:35] LABS: Magnesium 1.9 mg/dL (1.6-2.6)
[2017-02-27 07:45] VITALS: BP 161/78; PULSE 73; RESP 16; O2SAT 97
[2017-02-27] MEDS: LISDEXAMFETAMINE 70 MG PO SCH (07:55)
--- NOTE | 2017-02-27 10:25 | DRSVH ---
PROCEDURE: X-RAY CHEST ONE VIEW, PORTABLE ([id number]) INDICATIONS: 81 year-old female with cough for several weeks. TECHNIQUE: One view of the chest was acquired. COMPARISON: [facility], CR, XR CHEST 2VW, 02/24/2017, 12:08. [facility], CR , XR CHEST 2VW, 05/08/2016, 10:25. [facility], CR, CHEST 1VW (PORTABLE), 01/24/2015, 17:54 . FINDINGS: Surgical changes and devices: None. Lungs and pleura: No pleural effusions or pneumothorax. Lungs are clear, except for lateral right m idlung scarring as before. Mediastinum: Large retrocardiac hiatal hernia is again noted. Heart size is normal. Bones and chest wall: No suspicious bony lesions. Overlying soft tissues appear unremarkable. IMPRESSION: Large retrocardiac hiatal hernia, without acute cardiopulmonary disease. Dictated by: Ney Landon M.D. on 02/27/2017 at 9:22 Approved by: Ney Landon M.D. on 02/27/2017 at 9:23
[2017-02-27] MEDS: oxyCODONE-Acetamin 5-325 mg Tablet PO PRN (10:59)
[2017-02-27 11:15] VITALS: BP 148/75; PULSE 71; RESP 16; O2SAT 97
--- NOTE | 2017-02-27 12:09 | NUR ---
Social Work: Continued Discharge Planning/Readiness for Discharge SW received T/C from [facility] confirming pt's rx for metronidazole is a co-pay of $0.75. Pharmicist stated that insurance won't cover the Vancomycin until the Metronidazole has been tried and failed - then insurance will cover Vancomycin. Pt's out of pocket cost for Vancomycin will be $265.42. SW called MD and MD stated that pt will just go on metronidazole. SW received order for PT/OT/Bath Aide 3x/week. SW met with pt and provided choice list. Pt chose [facility]. SW placed referral call to [facility] at [facility] who stated that they could open with pt for services on Thursday. SW to fax F2F, face sheet, H&P, and discharge orders to [facility] fax [facility]) [phone]. PARAMJIT confirmed that pt is set up with [facility] for INR checks 3-days per week and daughter will provide transport. PARAMJIT confirmed that pt's rx for metronidazole has a co-pay of $0.75. PARAMJIT confirmed with pt that pt can potato picker rx at [facility] when pt discharges-PARAMJIT confirmed with [facility] that rx will be ready. ALAN Arriaga
[2017-02-27] MEDS ORDERED: SENN-133 PO (12:38)
[2017-02-27] MEDS ORDERED: OXYC1TAB24 PO (12:38)
[2017-02-27] MEDS ORDERED: METR500T19 PO (12:38)
[2017-02-27] MEDS ORDERED: POLY17PO6 PO (12:38)
--- NOTE | 2017-02-27 13:31 | PCM.DC.MED ---
Discharge Summary Date of Service Feb 27, 2017 Dates of Hospitalization Date of Hospital Admission Feb 24, 2017 at 13:41 Date of Discharge: Feb 27, 2017 Providers: Admitting Physician: Adrián Sewell MD Primary Care Physician: Padmini Montaño MD Attending Physician: Adrián Sewell MD Diagnosis at Time of Discharge Diagnosis at Time of Discharge # Weakness/near syncope , present on admission active -likely due to hypotension due to combination of recent Lasix use and 4 episodes of watery diarrhea on day of presentation -Initial sBP in 80's # c.dif colitis # Acute kidney injury on chronic kidney disease, present on admission, improved # 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 No acute cardiopulmonary disease. Dictated by: Ney Landon M.D. on 02/24/2017 at 11:33 PROCEDURE: US RENAL SONOGRAM INDICATIONS: ?kidney stone IMPRESSION: 1. Right kidney shows mild cortical thinning, no visible stones or hydronephrosis. 2. Atrophic left kidney is nonvisualized on this exam. 3. Small bladder volume, patient voiding prior to the exam. No visible bladder abnormality. Dictated by: Thad Hernandez M.D. 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 She denies any fevers, nausea, vomiting, back pain, dysuria or hematuria. She denies any diarrhea or abdominal pain. Patient was also seen in the emergency department Thursday due to left lower extremity pain DVT. She subsequently took some extra doses of Lasix to reduce her leg swelling. The patient underwent recent stenting of right ureter on 02/11/17 which was retrieved on 02/20/17nd was told to hold her warfarin. She was given prophylactic cipro during the procedure. 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 she had 4 episodes of watery diarrhea this morning. She states she was coming to her PCP office for INR check when she suddenly felt weak and lightheaded and about to faint. Family members helped her to couch .did not faint Per records review the patient is DNR/DNI with her daughter is the DPOA. In the ED her vitals were stable. She was given one liter of normal saline. 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 # Weakness/near syncope , present on admission active -likely due to hypotension due to combination of recent Lasix use and 4 episodes of watery diarrhea on day of presentation -Initial sBP in 80's - PE possible but unlikely given therapeutic INR. Patient does have a recent history of DVT diagnosed last week Treated with IV fluids and improved- # c.dif colitis -High risk for C. difficile colitis given recent antibiotic use for kidney stent prophylaxis and leukocytosis -Stool PCR positive for C. difficile -Vancomycin by mouth started 02/25. insurance did not authorize vancomycin. Patient concerned about drug interaction. Discharged on flagyl 500 mg every day for 6 more days. INRs check every other day at [facility] Follow-up with PCP after 1 week # Acute kidney injury on chronic kidney disease, present on admission, improved -Baseline Cr around 1.2-1.3. 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 Discontinued doxycycline -Patient had recent ureteral stent removal Chronic issues, present on admission # Hypertension -resume Lisinopril # Osteoporosis # Gout -resume Uloric # Depression with anxiety -Continue Vyvanse, wellbutrin, # Hypothyroid -Continue levothyroxine CODE STATUS: DNR/DNI Disposition: Discharge home to her daughter Condition on discharge stable Exam Vital Signs (Last) Date Time Temp Pulse Resp B/P Pulse Ox O2 Delivery O2 Flow Rate FiO2 02/27/17 11:15 36.5 71 16 148/75 97 Room Air Exam General: No acute distress, well-developed, well-nourished, appropriately interactive HEENT: Normocephalic, atraumatic. External ears without defect. Neck: Supple with full range of motion. No jugular venous distension. No bruits. No lymphadenopathy or thyromegaly. Cardiovascular: Regular rate and rhythm with no murmurs, rubs, or gallops appreciated Pulmonary: Clear to auscultation bilaterally with no crackles, wheezes, or rhonchi. Normal respiratory effort with no use of accessory muscles. Abdomen: Bowel tones present. Soft, nontender, nondistended. No hepatosplenomegaly or masses appreciated. Extremities: No clubbing, cyanosis, edema, or lymphadenopathy appreciated. Skin: Normal temperature, turgor, and texture; no rash, ulcers, or subcutaneous nodules appreciated. : No suprapubic tenderness, no CVA tenderness. Neurological: Cranial nerves grossly intact. Normal muscle strength, tone, and bulk. Psychiatric: Alert and oriented to person, place, and time. Test 02/24/17 10:25 02/24/17 15:07 02/27/17 06:10 Lactic Acid Level 1.7mmol/L (0.4-2.0) Troponin T 0.010ug/L (0.0-0.011) Procalcitonin 0.15ng/mL (0.00-0.08) Hold Silva Top Tube Received (Received) Urine Color Yellow (YELLOW) Urine Appearance Clear (CLEAR,HAZY) Urine pH 6.0 (5.0-8.0) Urine Specific [place] <=1.005 (1.003-1.035) Urine Protein Negativemg/dL (NEG,TRACE) Urine Glucose (UA) Negativemg/dL (NEGATIVE) Urine Ketones Negativemg/dL (NEGATIVE) Urine Occult Blood Trace (NEGATIVE) Urine Nitrite Negative (NEGATIVE) Urine Bilirubin Negative (NEGATIVE) Urine Urobilinogen Normalmg/dL (NORMAL) Urine Leukocyte Esterase Small (NEGATIVE) Urine RBC 0-2/hpf (0-2) Urine WBC 6-10/hpf (0-5) Urine Epithelial Cells Occasional/hpf (NONE-MOD) Urine Crystals None seen (NONE SEEN) Urine Bacteria Few/hpf (NONE-FEW) Urine Hyaline Casts None/lpf (NONE) Urine Granular Casts None seen (NONE SEEN) Urine Waxy Casts None seen (NONE SEEN) Urine Red Blood Cell Casts None seen (NONE SEEN) Urine White Blood Cell Casts None seen (NONE SEEN) Urine Mucus None seen (None Seen) Urine Trichomonas None seen (NONE SEEN) Urine Yeast None (NONE SEEN) Urinalysis Comment Urine Culture Reflexed Indicated White Blood Count 9.9th/mm3 (3.8-10.1) Red Blood Count 3.50mil/mm3 (3.90-5.20) Hemoglobin 10.2g/dL (12.0-15.6) Hematocrit 32.0% (35.0-46.0) Mean Corpuscular Volume 91.4fL (81-100) Mean Corpuscular Hemoglobin 29.1pg (27.0-35.0) Mean Corpuscular Hemoglobin Concent 31.9% (32.0-37.0) Red Cell Distribution Width 13.4% (12.3-15.4) Platelet Count 369bil/L (150-400) Neutrophils (%) (Auto) 64.4% (40-74) Lymphocytes (%) (Auto) 17.4% (14-46) Monocytes (%) (Auto) 11.3% (4-12) Eosinophils (%) (Auto) 5.6% (0-5) Basophils (%) (Auto) 0.7% (0-3) Prothrombin Time 26.8sec (8.1-12.5) Prothromb Time International Ratio 2.46ratio Sodium Level 140mEq/L (134-144) Potassium Level 5.0mEq/L (3.5-5.2) Chloride Level 107mEq/L (97-108) Carbon Dioxide Level 21mmol/L (18-29) Blood Urea Nitrogen 39mg/dL (8-27) Creatinine 1.03mg/dL (0.57-1.00) Estimat Glomerular Filtration Rate 74mL/min (>59) Glucose Level 105mg/dL (60-99) Calcium Level 8.7mg/dL (8.5-10.1) Magnesium Level 1.9mg/dL (1.6-2.6) Total Bilirubin 0.2mg/dL (0.0-1.2) Aspartate Amino Transf (AST/SGOT) 15U/L (0-50) Alanine Aminotransferase (ALT/SGPT) 17U/L (0-32) Alkaline Phosphatase 74U/L (25-165) Total Protein 5.8g/dL (6.4-8.4) Albumin 3.1g/dL (3.4-5.0) Discharge Medications Discharge Medications Bupropion ER (Wellbutrin XL) 150 Mg Tab.er.24h 450 MG PO HS (Reported) Carvedilol (Carvedilol) 12.5 Mg Tablet 25 MG PO BID (Reported) Cholecalciferol (Vitamin D3) (Vitamin D) 1,000 Unit Capsule 2,000 UNIT PO DAILY (Reported) Febuxostat (Uloric) 80 Mg Tablet 80 MG PO HS (Reported) Ketoconazole (Ketoconazole) 120 Ml Shampoo 120 ML TP twice a week (Reported) Levothyroxine (Levothyroxine) 25 Mcg Tablet 25 MCG PO DAILY (Reported) Lisdexamfetamine Dimesylate (Vyvanse) 70 Mg Capsule 70 MG PO DAILY (Reported) Lisinopril (Lisinopril) 20 Mg Tablet 20 MG PO BID (Reported) Metronidazole (Metronidazole) 500 Mg Tablet 500 MG PO BID Prescribed by: ADRIÁN SEWELL MD Multivits-Min/FA/Lycopene/Lut (Centrum Silver Tablet) 1 Each Tablet 1 EACH PO DAILY (Reported) Warfarin Sodium (Warfarin Sodium) 4 Mg Tablet 2 MG PO thursday and thursday ( Reported) Warfarin Sodium (Warfarin Sodium) 4 Mg Tablet 4 MG PO Thu,Thu,Thu,Thu,Sat ( Reported) As needed Acetaminophen (Acetaminophen) 325 Mg Capsule 650 MG PO BID PRN PRN PRN (Reported ) Polyethylene Glycol 3350 (Miralax) 17 Gm Powd.pack 17 GM PO DAILY PRN PRN For Constipation Prescribed by: ADRIÁN SEWELL MD Sennosides (Senna) 8.6 Mg Tablet 17.2 MG PO BID PRN PRN For Constipation Prescribed by: ADRIÁN SEWELL MD oxyCODONE-Acetaminophen 5-325 mg (oxyCODONE-Acetaminophen 5-325 mg) 1 Each Tablet 1 TAB PO Q6H PRN PRN For Pain Prescribed by: ADRIÁN SEWELL MD Followup Plan Disposition: Home with home health for PT, bath aid, OT Discharge Diet: Heart Healthy Discharge Activity: Limited until seen by PCP Patient Instructions You were hospitalized due to generalized weakness/near syncope. Initial systolic blood pressure was in 80s. Symptoms seems to be due to hypotension due to combination of recent Lasix use and 4 episodes of watery diarrhea on . Diarrhea resolved now.You were diagnosed with C. difficile colitis. Please continue metronidazole 500 mg by mouth twice a day for 6 more days. Please be aware of medication interaction between metronidazole and Coumadin. Vancomycin oral is not authorized by your insurance. Please follow-up INR every other day at [facility] as scheduled. Please follow-up with PCP in 1-2 week. Please continue home health for home physical therapy, occupational therapy and bath aid 2-3 times per week. Follow-up Provider: Padmini Montaño MD Follow-up with PCP in: 2 weeks Time spent 35 minutes coordinating discharge. copies to: Padmini Montaño MD, Melaku MD Feb 27, 2017 13:31
--- NOTE | 2017-02-27 15:02 | NUR ---
Discharge Pt. was given discharge instructions based on problem list. Hard copy prescriptions given. Care notes provided on Dehydration, TIM and DVT. Pt. has f/u appt. scheduled with PCP Dr. Montaño, phone number provided for [facility]. Pt. also has appt. scheduled for INR clinic in [facility]. Home Health with bathaid set up by Social Work. Pt. taken off the unit via w/c, transported homy by daughter. Approx. discharge time 1435.
--- NOTE | 2017-02-27 15:42 | NUR ---
Social Work: Discharge D: EMR reviewed. Pt is on day 3 of hospitalization. PARAMJIT met with pt and family to confirm HH plan prior to discharge. Pt provided choice list, pt chose [facility]. PARAMJIT made referral to Flor at [facility] in [facility]. Flor requested PARAMJIT fax discharge orders/instructions, H&P, face sheet, and F2F to [facility] . PARAMJIT confirmed pt will receive INR appointments at [place] and 1 of pt's 3 daughters transport pt to appointments. PARAMJIT confirmed HH plan with MD, pt, and family. All agreeable to plan. A: Pt for whom HH PT OT Bath Aid 2-3x/week. P: Pt to discharge home with daughter via POV. PARAMJIT faxed documents required to open HH services Thursday with [facility]. Pt and family agreeable to plan. Pt's 1 of 3 daughters to provide transport to pt's INR appointments at [facility] 3x/week. Pt and daughter agreeable. ALAN Arriaga
== END 2017-02-27 14:35 | disposition home health service (06) | DRG 315 ==
LOC: SED 09:15 → OBSVTOIN 13:41 → MOC 13:41
PROVIDERS: ADMIT Internal Medicine; ATTEND Internal Medicine
DX: I95.9 Hypotension, unspecified (principal); N17.9 Acute kidney failure, unspecified; A04.7 Enterocolitis due to Clostridium difficile; I82.402 Acute embolism and thrombosis of unspecified deep veins of left lower extremity; F41.8 Other specified anxiety disorders; E03.9 Hypothyroidism, unspecified; M10.9 Gout, unspecified; E78.5 Hyperlipidemia, unspecified; Z79.01 Long term (current) use of anticoagulants; Z87.891 Personal history of nicotine dependence; E86.0 Dehydration; T50.1X5A Adverse effect of loop [high-ceiling] diuretics, initial encounter; I12.9 Hypertensive chronic kidney disease with stage 1 through stage 4 chronic kidney disease, or unspecified chronic kidney disease; N18.9 Chronic kidney disease, unspecified; R55 Syncope and collapse